=== PATIENT | female | born 1945 | race Asian ===

== ENCOUNTER → 2016-12-01 | Outpatient (CLI) | payer OTHER, MEDICARE ==
--- NOTE | 2016-12-01 17:45 | DX ---
DEXA Bone Mineral Densitometry Clinical Indications: 71-year-old postmenopausal female with suspected estrogen deficiency low bone mineral density versus osteoporosis. Comparison: 2013 Technique: Bone Mineral Densitometry (BMD) by Dual Energy X-Ray Absorptiometry (DEXA) was performed utilizing the [employer] scanner. The lumbar spine was evaluated in the AP projection. Bilateral hips and one forearm were evaluated in the AP projection. Vertebral fracture assessment was also per formed. AP Lumbar Spine: The L1, L2, L3 and L4 vertebral bodies are evaluated. BMD: 1.113 gm/cm2 T-score: - 0.7 SD Z-score: 1.0 SD Statistical interval improvement in bone mineral density since most recent study. AP Left Hip: BMD: 0.721 gm/cm2 T-score: - 2.3 SD Z-score: - 0.5 SD No significant interval change in bone mineral density since most recent study. AP Right Hip: BMD: 0.761 gm/cm2 T-score: - 2.0 SD Z-score: - 0.2 SD AP right Forearm: BMD: 0.619 gm/cm2 T-score: - 2.9 SD Z-score: - 0.9 SD Vertebral Fracture Assessment: No significant fracture deformity. Conclusion: 1. Considering the lowest measured site, the patient is osteoporotic and is at increased risk for fra cture. 2. The ten year risk for any major osteoporotic fracture is 12.9 % and for a hip fracture is 3.1 %. 3. Given the lowest measured site is the forearm, recommend excluding hyperparathyroidism as etiology of osteoporosis. Recommendations: 1. If not previously performed, consider excluding secondary metabolic causes of bone loss (reported to be present in as many as 30% of patients with normal Z scores). Basic laboratory evaluation might include blood chemistries (calcium, phosphorus, alkaline phosphatase, liver function tests, creatinin e, total protein), complete blood count, serum 25-OH- vitamin D3 level, 24-hour urine calcium, ser um TSH and serum PTH. Targeted laboratory testing based on individual patient circumstances might inc lude serum electrophoresis (SPEP or UPEP), anti-tissue transglutaminase antibody levels (celiac dise ase) , serum bone specific alkaline phosphatase, bone turnover markers (urine, serum) or fibroblast g rowth factor 23 (FGF 23)(evaluate for unexplained osteomalacia). 2. If secondary causes are excluded, then consider initiating treatment with a bisphosphonate (such a s Fosamax, Actonel or Boniva). If the patient is unable to use an oral bisphosphonate, another agent such as IV bisphosphonates (Boniva or Reclast), teriparatide (Forteo), a selective estrogen receptor modulator (Evista) or denosumab ( anti RANKL monoclonal antibody) might be considered. 3. If antiresorptive therapy is initiated and if clinically indicated, consider obtaining a baseline and 3 month followup bone resorption marker (NTX, CTX, TRAP5b or Pyridinoline, deoxypyridinoline) to monitor the therapeutic effect. 4. Check serum hydroxy vitamin D3 level (optimal > 50 ng/ml). 5. Osteoporosis prevention and treatment begins by modifying risk factors. The patient should be enco uraged to participate in a regular exercise program that includes weightbearing and muscle strengthen ing regimens, as is clinically appropriate. 6. Recommend follow-up DEXA in 2 years to assess the efficacy of pharmacologic intervention and/or co rrection of appropriate secondary cause.
== END ==
LOC: BRMIMAGING 10:20
PROVIDERS: ATTEND Specialist
DX: M81.0 Age-related osteoporosis without current pathological fracture (principal)

== ENCOUNTER → 2017-08-07 | Outpatient (CLI) | payer OTHER, MEDICARE | LOC: BRMIMAGING 12:47 | PROVIDERS: ATTEND Specialist | DX: Z12.31 Encounter for screening mammogram for malignant neoplasm of breast (principal); Z85.3 Personal history of malignant neoplasm of breast; Z92.21 Personal history of antineoplastic chemotherapy; Z92.3 Personal history of irradiation | CPT/HCPCS: G0202 ==

== ENCOUNTER → 2017-08-21 | Outpatient (CLI) | payer OTHER, MEDICARE | LOC: BRMIMAGING 10:08 | PROVIDERS: ATTEND Specialist | DX: R92.8 Other abnormal and inconclusive findings on diagnostic imaging of breast (principal) | CPT/HCPCS: 76641; G0206 ==

== ENCOUNTER → 2018-08-21 | Outpatient (CLI) | payer OTHER, MEDICARE | LOC: BRMIMAGING 14:48 | PROVIDERS: ATTEND Specialist | DX: Z12.31 Encounter for screening mammogram for malignant neoplasm of breast (principal); Z85.3 Personal history of malignant neoplasm of breast ==

== ENCOUNTER → 2018-09-20 | Outpatient (CLI) | payer OTHER, MEDICARE ==
[~2018-09-20] MED LIST: GADOBUTROL 10 ML VIAL IVP ONE
== END ==
LOC: FIMAGING 07:47
DX: R92.8 Other abnormal and inconclusive findings on diagnostic imaging of breast (principal); Z85.3 Personal history of malignant neoplasm of breast
CPT/HCPCS: 0159T; A9585; C8908; 82565-PO

== ENCOUNTER → 2019-05-07 | Outpatient (CLI) | payer OTHER, MEDICARE | LOC: BRMIMAGING 08:49 ==